=== PATIENT | female | born 1990 ===

== ENCOUNTER 2016-10-18 02:37 | Emergency (ER) | payer OTHER ==
[2016-10-18 02:45] VITALS: O2SAT 99
[2016-10-18 03:56] LABS: BLOOD UREA NITROGEN 8 mg/dl (7-18); BUN/CREATININE RATIO 11.2 (10-20); CALCIUM 10.1 mg/dl (8.5-10.1); CARBON DIOXIDE 22 mmol/L (21-32); CHLORIDE 110 mmol/L (98-107); CREATININE 0.73 mg/dl (0.60-1.20); GLUCOSE 103 mg/dl (70-99); SODIUM 142 mmol/L (136-145)
--- NOTE | 2016-10-18 05:47 | EMERGENCY ROOM VISIT NOTE ---
History First contact with patient: 03:33 Chief Complaint: ALCOHOL OVERDOSE Stated Complaint: ALCOHOL OVERDOSE Nursing Triage Summary: pt was at [facility] for over an hour asking people for help so they called pd, pt blew .169, pt crying and uncooperative. History of Present Illness The patient is a 26 year old female who presents to the Emergency Room with alcohol overdose. The patient was reportedly at [employer] for over an hour and asking people for help. She states that they called the police. The patient was brought to the emergency department. Apparently, the patient was very uncooperative, screaming and crying. She had been placed in LOC limb restraints prior to my evaluation. On evaluation, the patient was responsive to verbal stimuli. She answered a few questions but seemed rather sleepy. Review of Systems A 10 system review of systems was completed with positives and pertinent negatives listed in the HPI. Past Medical/Surgical History none Social History Smoking Status: Unknown if Ever Smoked Marital Status: single Occupation Status: [employer] Current/Historical Medications No Active Prescriptions or Reported Meds Physical Exam Vital Signs Date Time Temp Pulse Resp B/P (MAP) Pulse Ox O2 Delivery O2 Flow Rate FiO2 10/18/16 07:30 84 14 106/64 100 Room Air 10/18/16 05:41 106 16 103/55 100 Room Air 10/18/16 04:11 94 16 93/55 96 Room Air 10/18/16 02:45 99 Room Air 10/18/16 02:45 118 14 122/89 99 Room Air 10/18/16 02:45 129 Physical Exam VITALS: Vitals are noted on the nurse's note and reviewed by myself. Vital signs stable. GENERAL: This is a 26-year-old female, in no acute distress, nondiaphoretic, well-developed well-nourished. SKIN: The skin was without rashes, erythema, edema, or bruising. There are no lacerations or abrasions. There is no tenting of the skin. Capillary reflex less than 2 seconds. HEAD: Normocephalic atraumatic. EARS: External auditory canals clear, tympanic membranes pearly murguia without erythema or effusion bilaterally. No hemotympanums. No cavanaugh sign. No mastoid tenderness. EYES: Pupils equal round and reactive to light and accommodation. Conjunctivae without injection, sclerae without icterus. Extraocular movements intact. NOSE: Patent, turbinates without inflammation or discharge. No sinus tenderness. No septal hematoma or bleeding. FACE: No facial tenderness. Full range of motion of the jaw without tenderness. MOUTH: Mucous membranes moist. Pharynx without erythema or exudate. Uvula midline. Airway patent. Tongue does not deviate. NECK: Supple without nuchal rigidity. Cervical spine is nontender. Full range of motion of the neck without tenderness. No JVD. HEART: Regular rate and rhythm without murmurs gallops or rubs. LUNGS: Clear to auscultation bilaterally without wheezes, rales or rhonchi. No retractions or accessory muscle use. No chest tenderness. ABDOMEN: Positive bowel sounds x 4. Soft, nontender, without masses or organomegaly. MUSCULOSKELETAL: No muscle atrophy, erythema, or edema noted. Full range of motion in all extremities. Normal gait. Strength 5/5 throughout. NEURO: Patient was alert and oriented to person place and time. Normal Mini- Mental status exam. Normal sensation to light and sharp touch. Negative Romberg and pronator drift. Cerebellar function intact. No focal neurological deficits. Medical Decision & Procedures Laboratory Results 10/18/16 02:45 Test 10/18/16 02:45 Anion Gap 10.0 mmol/L (3-11) Estimated GFR () 133.6 Estimated GFR (Non- 115.3 BUN/Creatinine Ratio 11.2 (10-20) Calcium Level 10.1 mg/dl (8.5-10.1) Ethyl Alcohol mg/dL 233.0 mg/dl (0-3) Medical Decision Prior records/ancillary studies reviewed. Triage Nursing notes reviewed. Additional history obtained from EMS/nursing. The patient's history was concerning for altered mental status and a possible alcohol overdose. Differential diagnosis: Etiologies such as alcohol intoxication, toxicologic, infection, hypoglycemia, electrolyte abnormalities, cardiac sources, intracerebral event, neurologic, as well as others were entertained. Physical examination: As above. The patient is clinically intoxicated. There was no trauma noted. ER treatment provided: Monitoring Aspiration precautions The patient was frequently reassessed. The patient had been uncooperative and deemed harm to herself prior to my evaluation. She had been placed in LOC limb restraints. The patient was reassessed very frequently. The restraints were removed. Diagnostic interpretation by me: Cardiac monitoring did not reveal any evidence of dysrhythmia. The labs revealed potassium of 3.0. The patient's blood alcohol level was 233 mg /dL. The patient's history was reviewed once they were more coherent and their intoxication cleared. The patient states they have been in good health recently and had no medical complaints. The patient admitted to consuming alcohol. No additional concerning findings were noted. The patient complained of no symptoms to suggest assault. This appears to be consistent with an isolated overdose of alcohol. By the evaluation outlined above emergent etiologies such as trauma, infection, hypoglycemia, electrolyte abnormalities, cardiac sources, intracerebral event, neurologic,as well as others were deemed relatively unlikely. The patient was informed about the findings as listed above. The patient was counseled on the dangers of excessive alcohol use. I gave my usual and customary discussion regarding this issue. All questions were answered and the patient was pleased with the treatment. Return instructions were outlined and the patient was discharged in stable condition once their mental status improved and a safe destination was confirmed. Outpatient prescription management: None Referral: The patient was referred back to their primary care physician for follow-up in 2 to 3 days for a recheck of their current condition. Impression Primary Impression: Alcoholic intoxication Additional Impression: Alcohol abuse Departure Information Dispostion Home / Self-Care Condition GOOD Prescriptions No Active Prescriptions or Reported Meds Patient Instructions My [facility] [place] twtMob Additional Instructions Rest Avoid alcohol Avoid tylenol Return with worsening symptoms Problem Qualifiers
[2016-10-18 07:30] VITALS: BP 106/64; PULSE 84; O2SAT 100
== END 2016-10-18 07:48 | disposition home or self-care (01) ==
LOC: C.EDA 02:39
DX: F10.129 Alcohol abuse with intoxication, unspecified (principal); Z78.1 Physical restraint status